=== PATIENT | female | born 1945 | race Caucasian/White ===

== ENCOUNTER 2021-05-22 16:55 | Emergency (ER) | payer MEDICARE ==
[2021-05-22 18:22] LABS: HEMOGLOBIN 13.9 gm/dl (12.3-15.3); RED BLOOD COUNT 5.18 M/UL (4.00-5.10); WHITE BLOOD COUNT 7.4 K/UL (4.5-11.0)
[2021-05-22 18:45] LABS: BUN/CREATININE RATIO 14 (0-10)
== END 2021-05-22 19:55 | disposition home or self-care (01) ==
LOC: ER1 16:55
PROVIDERS: Physician Assistant
DX: U07.1 COVID-19 (principal)
CPT/HCPCS: 70450; 80053; 81001; 82550; 82553; 83874; 84484; 85025; 93005; 99284; U0002